=== PATIENT | male | born 1985 | race African-American/Black ===

== ENCOUNTER → 2022-01-12 | Outpatient (CLI) | payer OTHER ==
[~2022-01-12] VITALS: Ht 177.8 cm; Wt 89.8 kg
[~2022-01-12] MED LIST: ACET1TAB55 PO; ACETAMINOPHEN 1000MG 100ML IV BTL (OFIRMEV) (J0131 PER 10MG) As Ordered ONE; HYDR-3490 PO; IBUP200C25 PO; KETOROLAC 60MG 2ML VIAL As Ordered ONE; LIDOCAINE 1% MDV 20ML VIAL SQ PRN; LIDOCAINE 2% 100MG/5ML SDV (FOR ANES.) As Ordered ONE; LR 1,000 ML IV ONE; MIDAZOLAM INJ 2MG/2ML VIAL (J2250 PER 1MG) As Ordered ONE; ONDANSETRON 4MG/2ML VIAL As Ordered ONE; dexameTHASONE 4 MG/ML 1ML VIAL (J1100 PER 1MG) As Ordered ONE; fentaNYL 100 MCG/2 ML INJECTION As Ordered ONE; propofoL 200 MG/20 ML VIAL As Ordered ONE
== END ==
LOC: M LAB 06:00 → EDSTATUS 12:45
PROVIDERS: ATTEND Orthopaedic Surgery Hand Surgery
DX: S62.335A Displaced fracture of neck of fourth metacarpal bone, left hand, initial encounter for closed fracture (principal); Z53.09 Procedure and treatment not carried out because of other contraindication; U07.1 COVID-19

== ENCOUNTER 2022-01-17 09:09 | Day surgery (SDC) | payer OTHER ==
[~2022-01-17] VITALS: Ht 177.8 cm; Wt 89.3 kg
[~2022-01-17 09:09] MED LIST changes: -ACET1TAB55 PO; -ACETAMINOPHEN 1000MG 100ML IV BTL (OFIRMEV) (J0131 PER 10MG) As Ordered ONE; -IBUP200C25 PO; -KETOROLAC 60MG 2ML VIAL As Ordered ONE; -ONDANSETRON 4MG/2ML VIAL As Ordered ONE; -dexameTHASONE 4 MG/ML 1ML VIAL (J1100 PER 1MG) As Ordered ONE
[2022-01-17] MEDS ORDERED: BUPIVACAINE HCL 0.25% 30ML VIAL As Ordered ONE (09:15)
[2022-01-17] MEDS ORDERED: BACITRACIN OINTMENT 30GM TUBE As Ordered ONE (09:15)
[2022-01-17] MEDS ORDERED: ACET1TAB55 PO (09:40)
[2022-01-17] MEDS ORDERED: IBUP200C25 PO (09:40)
[2022-01-17] MEDS ORDERED: ceFAZolin 2 GM/D5W 50 ML IV BAG (J0690 PER 500MG) As Ordered ONE (11:17)
[2022-01-17] MEDS ORDERED: KETOROLAC 60MG 2ML VIAL As Ordered ONE (12:12)
[2022-01-17] MEDS ORDERED: ONDANSETRON 4MG/2ML VIAL As Ordered ONE (12:12)
[2022-01-17] MEDS ORDERED: dexameTHASONE 4 MG/ML 1ML VIAL (J1100 PER 1MG) As Ordered ONE (12:12)
[2022-01-17] MEDS ORDERED: GLYCOPYRROLATE INJ 0.2 MG/ML 2 ML VIAL As Ordered ONE (12:22)
[2022-01-17] MEDS ORDERED: ACETAMINOPHEN 1000MG 100ML IV BTL (OFIRMEV) (J0131 PER 10MG) As Ordered ONE (12:28)
[2022-01-17] MEDS ORDERED: fentaNYL 100 MCG/2 ML INJECTION As Ordered ONE ×2 (12:54→14:07)
[2022-01-17] MEDS: fentaNYL 100 MCG/2 ML INJECTION IV PRN ×3 (14:04→14:14)
[2022-01-17] MEDS ORDERED: ONDANSETRON 4MG/2ML VIAL IV PRN (14:10)
[2022-01-17] MEDS ORDERED: oxyCODONE 5MG TAB PO PRN (14:10)
[2022-01-17] MEDS ORDERED: LR 1,000 ML IV SCH (14:10)
[2022-01-17] MEDS ORDERED: MEPERIDINE INJ 25 MG/ML VIAL (J2175) As Ordered ONE (14:14)
[2022-01-17] MEDS: MEPERIDINE INJ 25 MG/ML VIAL (J2175) IV PRN ×2 (14:18→14:23)
[2022-01-17] MEDS ORDERED: NORCO, ANEXSIA 5/325MG TABLET (HYDROcodone/ACETAMINOPHEN) PO PRN (14:35)
[2022-01-17 15:19] VITALS: BP 148/86
== END 2022-01-17 16:27 | disposition home or self-care (01) ==
LOC: M SDC 09:09
PROVIDERS: ATTEND Orthopaedic Surgery Hand Surgery
DX: S62.335A Displaced fracture of neck of fourth metacarpal bone, left hand, initial encounter for closed fracture (principal); X58.XXXA Exposure to other specified factors, initial encounter; Y92.89 Other specified places as the place of occurrence of the external cause; Y93.9 Activity, unspecified; Y99.9 Unspecified external cause status; I10 Essential (primary) hypertension; Z79.899 Other long term (current) drug therapy; Z91.013 Allergy to seafood; Z88.5 Allergy status to narcotic agent
CPT/HCPCS: 26615; 76000; 87428; C1713; J0131; J0690; J1100; J1885; J2175; J2250; J2405; J3010

== ENCOUNTER → 2022-01-27 | Outpatient (CLI) | payer OTHER ==
[~2022-01-27] MED LIST changes: +ACET1TAB55 PO; +IBUP200C25 PO; -LIDOCAINE 1% MDV 20ML VIAL SQ PRN; -LIDOCAINE 2% 100MG/5ML SDV (FOR ANES.) As Ordered ONE; -LR 1,000 ML IV ONE; -MIDAZOLAM INJ 2MG/2ML VIAL (J2250 PER 1MG) As Ordered ONE; -fentaNYL 100 MCG/2 ML INJECTION As Ordered ONE; -propofoL 200 MG/20 ML VIAL As Ordered ONE
== END ==
LOC: M SOG 07:58
PROVIDERS: ATTEND Physician Assistant
DX: S62.305A Unspecified fracture of fourth metacarpal bone, left hand, initial encounter for closed fracture (principal); W18.30XA Fall on same level, unspecified, initial encounter; Y92.009 Unspecified place in unspecified non-institutional (private) residence as the place of occurrence of the external cause